=== PATIENT | female | born 1955 | race Caucasian/White ===

== ENCOUNTER → 2023-09-07 | Outpatient (REF) | payer BC, MEDICARE, SELFPAY | LOC: DHSLP | PROVIDERS: ATTENDING PHYSICIAN Internal Medicine; FAMILY PHYSICIAN Family Medicine | DX: G47.33 Obstructive sleep apnea (adult) (pediatric) (principal) | CPT/HCPCS: 95800 ==

== ENCOUNTER → 2023-10-29 09:06 | Outpatient (REF) | payer BC, MEDICARE, SELFPAY | LOC: RAD 09:06 | PROVIDERS: ATTENDING PHYSICIAN Nurse Practitioner Family; FAMILY PHYSICIAN Family Medicine | DX: R05.9 Cough, unspecified (principal); R94.2 Abnormal results of pulmonary function studies | CPT/HCPCS: 71250 ==

== ENCOUNTER 2024-02-16 14:03 | Emergency (ER) | payer BC, MEDICARE, SELFPAY ==
[2024-02-16] VITALS (9 sets, daily range): BP systolic 108–121; BP diastolic 57–91; BMI 20.7
--- NOTE | 2024-02-16 16:05 | ED.GENMED ---
History of Present Illness
<CALISTA Bauman - Last Filed: 02/16/24 18:49>
General
Chief Complaint: Musculo-Skeletal Complaint
Source: patient
Exam Limitations: none
Time Seen by Provider: 02/16/24 15:25
Nursing documentation reviewed up to this point in time: agreed with
History of Present Illness
History of Present Illness:
Patient is a 68-year-old female presents to the ER complaining of left wrist injury. She was trying to get a picture of a bat and fell on to a roof but she landed on her left wrist. She did not, contact with the bat she reports about was always 20
feet away from her at least and she denies hitting her head. Her only complaint is left wrist pain. She is right-hand dominant. She did not take anything for pain .
Review of Systems
<CALISTA Bauman - Last Filed: 02/16/24 18:49>
Review of Systems
Allergies reviewed?: Yes
All Other Systems: ROS reviewed and negative except as documented in HPI and ROS
Constitutional: Reports no symptoms
EENT: Reports no symptoms
Respiratory: Reports no symptoms
Cardiac: Reports no symptoms
Musculoskeletal: Reports other (left wrist pain )
Skin: Reports no symptoms
Hematologic/Lymphatic: Reports no symptoms
Psychiatric: Reports no symptoms
Phy Exam
<CALISTA Bauman - Last Filed: 02/16/24 18:49>
General Physical Exam
General Presentation: no apparent distress
General age: appears stated age
General Skin: warm and dry
General Habitus: normal
General Hydration: appears well hydrated
Neurological Exam
Neurological Exam: alert and oriented x3
Musculoskeletal Exam
Musculoskeletal Exam: other (Left upper extremity with strong pulses obvious deformity to left wrist with normal cap refill normal distal sensation)
Skin Exam
Skin Exam: normal color and warm/dry
Psychiatric Exam
Psychiatric Exam: normal mood/affect
Course
<CALISTA Bauman - Last Filed: 02/16/24 18:49>
Orders/Labs/Results
Orders:
Orders
02/16/24 14:31
CR Wrist - Left Min 3 Views Urgent
Comment:
Reason For Exam: fall
02/16/24 16:07
IV Insert/Care/Rem.- Treatment PRN
HYDROmorphone [Dilaudid] 0.5 mg IV NOW STA
02/16/24 16:58
Propofol [Diprivan] 20 ml .ROUTE .STK-MED
02/16/24 17:47
CR Wrist - Left Min 2 Views Stat
Comment: portable!
Reason For Exam: post reduction
Vital Signs
Initial and Last Documented VS:
Initial Vital Signs
Temp Pulse Resp BP Pulse Ox
98.3 F 76 16 108/74 97
02/16/24 14:24 02/16/24 14:24 02/16/24 14:24 02/16/24 14:24 02/16/24 14:24
Last Documented Vital Signs
Temp Pulse Resp BP Pulse Ox
97.8 F 70 16 121/63 98
02/16/24 18:31 02/16/24 18:31 02/16/24 18:31 02/16/24 18:31 02/16/24 18:31
<Nico Saleh DO - Last Filed: 02/16/24 21:33>
Orders/Labs/Results
Orders:
Orders
02/16/24 14:31
CR Wrist - Left Min 3 Views Urgent
Comment:
Reason For Exam: fall
02/16/24 16:07
IV Insert/Care/Rem.- Treatment PRN
HYDROmorphone [Dilaudid] 0.5 mg IV NOW STA
02/16/24 16:58
Propofol [Diprivan] 20 ml .ROUTE .STK-MED
02/16/24 17:47
CR Wrist - Left Min 2 Views Stat
Comment: portable!
Reason For Exam: post reduction
Vital Signs
Initial and Last Documented VS:
Initial Vital Signs
Temp Pulse Resp BP Pulse Ox
98.3 F 76 16 108/74 97
02/16/24 14:24 02/16/24 14:24 02/16/24 14:24 02/16/24 14:24 02/16/24 14:24
Last Documented Vital Signs
Temp Pulse Resp BP Pulse Ox
97.8 F 70 16 121/63 98
02/16/24 18:31 02/16/24 18:31 02/16/24 18:31 02/16/24 18:31 02/16/24 18:31
Procedures
<CALISTA Bauman - Last Filed: 02/16/24 18:49>
Moderate Sedation
ASA Risk Score: Class I
Chart and allergies reviewed: Yes
Consent for anesthesia obtained: Yes
Time out completed (validating right patient & procedure): Yes
Moderate Sedation Start Time(when first medication is given): 17:36
History of difficult intubation: No
Airway free of obstruction: Yes
Patient has a gag reflex: Yes
Patient is able to open mouth: Yes
Patient has no dentures: No
Patient has no loose teeth: No
Medication administered by Provider during Moderate Sedation: IV Propofol (mg)
Total dose administered: 70
Time drug administered: 17:36
Moderate Sedation Procedure End Time: 17:46
Joint/Fracture Reduction
Left Wrist:
Indication for procedure:: Left wrist comminuted displaced fracture
If no, reason: Emergency procedure
Joint reduced: with anesthesia sedation
Injury was: closed
Further treatement: needs further treatment
Post reduction exam: stable
Capillary Refill: normal
Normal distal neurovascular exam?: Yes
Peripheral Pulses: radial (right): 4+
<Nico Saelh DO - Last Filed: 02/16/24 21:33>
Moderate Sedation
Comment: By Dr. Saleh and Milagros Carrasco
Splinting/Sling Placement
Left Wrist:
Procedure completed by: Dr. Saleh and Milagros Carrasco
Pre-splint extermity exam: neurovascular intact
Type of splint: sugar-tong
Splint material: fiberglass
Type of sling: sling fitted
Normal distal neurovascular exam?: Yes
<CALISTA Bauman - Last Filed: 02/16/24 18:49>
MDM/Problems Addressed
MDM/Problems Addressed:
Patient is a 65-year-old female who fell while attempting to try to get a picture of a bat and landed on her left wrist. She denies having any contact with the bat denies hitting her head only complains of left wrist pain. She presents with
obvious deformity. X-rays reviewed. Patient with comminuted fracture with displacement. Case reviewed with ED physician moderate sedation and risk reduction was performed. Patient was splinted in sugar-tong. Patient with orthopedics was able to
visualize pre and postreduction films. Dr. Aguilera's office will reach out to patient to schedule appointment tomorrow .
Discussed ice elevation ibuprofen, pain medicine as needed to be sent to pharmacy discussed return if any worsening of symptoms.
<CALISTA Bauman - Last Filed: 02/16/24 18:49>
*Radiology
Radiology exam reviewed: radiology read reviewed
*Critical Care Note
Total Time (30-74mins, 75-104mins- exclusive of procedures): Not Applicable
<CALISTA Bauman - Last Filed: 02/16/24 18:49>
Patient Management
Discussion with other providers: Biogeographer (Discussed with Dr. Aguilera orthopedics)
ED Attending Note
<CALISTA Bauman - Last Filed: 02/16/24 18:49>
-
Portions of this chart may have been created with voice recognition software.� Occasional wrong word or��sound alike� substitutions may have occurred due to the inherent limitations of voice recognition software.
<Nico Saleh DO - Last Filed: 02/16/24 21:33>
ED Attending Note
Patient seen and examined by attending physician: Yes
I performed the substantive portion of visit, reviewed & personally made and approve the management plan that is documented in note by myself or NO.: Yes
ED Attending Note:
Wrist reduced. See notes above. Outpatient orthopedic follow-up arranged
Discharge Plan
Departure
Patient Disposition: Home (Routine Discharge)
Date of Disposition: 02/16/24
Time of Disposition: 18:43
Patient with high blood pressure during this ER visit?: No
Covid-19: Not Applicable
Discharge Problem:
Fracture of wrist, moderate sedation
Instructions: Moderate Sedation in Adults (DC), Splint Care, Wrist Fracture
Prescriptions:
New
oxycodone 5 mg capsule
5 mg PO TID PRN (Reason: Pain) Qty: 10 0RF
No Action
Advil
2 cap PO PRN PRN (Reason: pain)
omeprazole 40 MG capsule,delayed release(DR/EC)
40 mg PO DAILY
lorazepam 0.5 MG tablet
0.5 mg PO PRN PRN (Reason: anxiety)
methimazole 5 MG tablet
5 mg PO DAILY
sertraline 50 MG tablet
75 mg PO DAILY
red yeast rice 600 MG tablet
600 mg PO DAILY
Ca-D3-mag [id number]-bor [Calcium 600-D3 Plus (mag-zinc)] 1 EACH tablet
1 ea PO .3 X WEEK
ascorbic acid (vitamin C) 500 MG capsule
500 mg PO DAILY
Qvar 40 mcg/actuation
1 puff inhalation BID
Reclast 5 mg/100 ml Solution:
IV .YEARLY
Vitamin D
50,000 units PO WEEKLY
oxycodone-acetaminophen 5 MG/325 MG tablet
0.5 - 1 tab PO Q4HPRN PRN (Reason: pain not relieved by ibuprofen) Qty: 10 0RF
Referrals:
JACK BONE, [Family Provider] -
Santos Aguilera MD [Active] -
Activity Restrictions/Additional Instructions:
As discussed wear splint for support do not wet do not remove. Keep elevate is much as possible wear sling throughout the day but remove at night while sleeping. You may take Tylenol or ibuprofen as needed however if needed a stronger pain
medication oxycodone was sent to pharmacy. Take as directed. No driving or drink alcohol while taking this medication as medication will make you drowsy. This medication may also make you constipated please take [id number] stool softener
while taking this medication. Return if any worsening of symptoms if increased pain, cold, blue, numb fingers.
\\Follow-up with orthopedics as discussed tomorrow. DR Aguilera's office should reach out to you if not please give the office call in the morning.
Interventions
Interventions:
*Risk Screen - Suicide Last Done: 02/16/24 15:25
*General Assessment Last Done: 02/16/24 14:24
*Neglect/Abuse Screening Last Done: 02/16/24 15:25
ED- Fall Risk Assessment Last Done: 02/16/24 18:54
*ED COVID-19 Vaccine History Last Done: 02/16/24 14:24
*Nursing Disposition Last Done: 02/16/24 18:54
ED-Musculoskeletal Assessment Last Done: 02/16/24 15:25
Discharge Date and Time
Discharge Date/Time: 02/16/24 18:55
Print Language: PERUVIAN
[2024-02-16] MEDS: DILAUDID 0.5 MG IV (16:19)
== END 2024-02-16 18:55 | disposition home or self-care (01) ==
LOC: EMR 14:03
PROVIDERS: EMERGENCY PHYSICIAN Emergency Medicine; FAMILY PHYSICIAN Family Medicine
DX: S62.102A Fracture of unspecified carpal bone, left wrist, initial encounter for closed fracture (principal); W19.XXXA Unspecified fall, initial encounter; Y93.89 Activity, other specified; K21.9 Gastro-esophageal reflux disease without esophagitis; M81.0 Age-related osteoporosis without current pathological fracture; Z90.49 Acquired absence of other specified parts of digestive tract; Z88.8 Allergy status to other drugs, medicaments and biological substances
CPT/HCPCS: 25605; 99285; 99152; 96374; 73100; 73110

== ENCOUNTER 2024-02-27 06:31 | Day surgery (SDC) | payer BC, MEDICARE, SELFPAY ==
[2024-02-27 11:50] VITALS: BMI 20.9
[2024-02-27 11:55] VITALS: BP 112/70
[2024-02-27 12:00] VITALS: BMI 20.9
[2024-02-27] MEDS: NORMOSOL-R 1000 IV (12:20)
[2024-02-27 12:34] LABS: Hematocrit 36.4 % (37.0-47.0); Hemoglobin 12.7 g/dL (12.0-16.0); Mean Corp Hgb Conc. 34.9 g/dL (33.0-37.0); Mean Corpuscular Hgb 30.1 pg (27.0-31.0); Mean Corpuscular Volume 86.3 fL (81.0-99.0); Mean Platelet Volume 10.7 fL (7.4-10.4); Platelet Count 247 10^3/uL (130-400); Red Blood Cell Count 4.22 10^6/uL (4.20-5.40); Red Cell Dist. Width 12.8 % (11.5-14.5); White Blood Cell Count 5.8 10^3/uL (4.8-10.8)
[2024-02-27 18:08] VITALS: BP 103/70
[2024-02-27 18:15] VITALS: BP 100/80
== END 2024-02-27 19:05 | disposition home or self-care (01) ==
LOC: SDS 06:31
PROVIDERS: ATTENDING PHYSICIAN Orthopaedic Surgery Hand Surgery
DX: S52.572A Other intraarticular fracture of lower end of left radius, initial encounter for closed fracture (principal); S52.612A Displaced fracture of left ulna styloid process, initial encounter for closed fracture; X58.XXXA Exposure to other specified factors, initial encounter
CPT/HCPCS: 25609; 25652; 85027; 93005; C1713